=== PATIENT | male | born 1995 | race Caucasian/White ===

== ENCOUNTER 2016-11-03 12:26 | Emergency (ER) | payer OTHER ==
[2016-11-03 13:28] VITALS: BP 132/78
--- NOTE | 2016-11-03 13:51 | UC ---
Upper Extremity HPI - HPI Summary HPI Summary: Last night pt did a somersalt/forward roll at work and landed on his left shoulder. Pt states he felt a crunch in the shoulder and there is a lump where the collarbone and shoulder meet. Pt states he also can not move his arm forward. He hasnt taken anything for pain. pain is 6/10 when sitting at rest. hard tp put his hand behind his head. He rolled fwd onto his left shoulder and while most of his body weight was on his left shoulder, he heard a crunch with instant pain. never injured the shoulder/clavicle before. denies any numbing or tingling into arm. weakness due to pain. - History of Current Complaint Chief Complaint: UCUpperExtremity Stated Complaint: LEFT SHOULDER PAIN Time Seen by Provider: 11/03/16 13:50 - Allergies/Home Medications Allergies/Adverse Reactions: Allergies Allergy/AdvReac Type Severity Reaction Status Date / Time cats, guinea pigs Allergy Congestion Uncoded 08/29/16 07:12 dust mites Allergy Difficulty Uncoded 08/29/16 07:12 Breathing/Wheezing Home Medications: Home Medications NK [No Home Medications Reported] 11/03/16 [History Confirmed 11/03/16] PMH/Surg Hx/FS Hx/Imm Hx Previously Healthy: Yes Endocrine History Of: Denies: Diabetes, Thyroid Disease Cardiovascular History Of: Denies: Cardiac Disorders, Hypertension Respiratory History Of: Reports: Asthma Denies: COPD GI/ History Of: Denies: Ulcer - Surgical History Surgical History: Yes Surgery Procedure, Year, and Place: t/a as child - Family History Known Family History: Positive: Hypertension, Respiratory Disease - Social History Alcohol Use: None Substance Use Type: None Smoking Status (MU): Heavy Every Day Tobacco Smoker Type: Cigarettes Amount Used/How Often: 1/2 pack daily Have You Smoked in the Last Year: Yes Household Exposure Type: Cigarettes - Immunization History Most Recent Influenza Vaccination: not this season Review of Systems Constitutional: Negative Skin: Negative Eyes: Negative ENT: Negative Respiratory: Negative Cardiovascular: Negative Gastrointestinal: Negative Genitourinary: Negative Motor: Negative Neurovascular: Negative Musculoskeletal: Decreased ROM Neurological: Negative Psychological: Negative All Other Systems Reviewed And Are Negative: Yes Physical Exam Triage Information Reviewed: Yes Appearance: Well-Appearing, No Pain Distress Vital Signs: Initial Vital Signs Temp 98.7 F 11/03/16 13:21 Pulse 64 11/03/16 13:21 Resp 16 11/03/16 13:21 BP 132/78 11/03/16 13:21 Pulse Ox 99 11/03/16 13:21 Eye Exam: Normal ENT Exam: Normal Neck exam: Normal Neck: Positive: Supple, Nontender, No Lymphadenopathy Respiratory Exam: Normal Respiratory: Positive: Lungs clear, Normal breath sounds, No respiratory distress Cardiovascular Exam: Normal Cardiovascular: Positive: RRR, No Murmur, Pulses Normal, Brisk Capillary Refill Abdominal Exam: Normal Abdomen Description: Positive: Nontender, Soft Musculoskeletal: Positive: ROM Intact - with abduction and internal rotation., ROM Limited @ - external rotation and flexion. strength intact otherwise. sensation intact. CR brisk. there is mild swelling at distal clavicle joint with tenderness Neurological Exam: Normal Skin Exam: Normal Upper Extremity Course/Dx - Course Course Of Treatment: xray left shoulder and clavicle - xrays negative for frxs. Sling given. ice and rest and nsaids. denies any h/o PUD, CKD, HTN. - Differential Dx/Diagnosis Differential Diagnosis/HQI/PQRI: Fracture (Closed), Strain, Sprain Provider Diagnoses: left shoulder strain Discharge - Discharge Plan Condition: Stable Disposition: HOME Patient Education Materials: Rotator Cuff Injury (ED) Referrals: Maren Caldwell MD [Primary Care Provider] - Denys Calabrese MD [Medical Doctor] - 1 Day Additional Instructions: Ice, rest. OTC ibuprofen 600mgs every 8 hrs as needed. Stop it with any stomach upset or signs of blood or dark tar like stool.
[2016-11-03] MEDS ORDERED: Ibuprofen TAB* 600 MG PO ONE (13:57)
--- NOTE | 2016-11-03 14:14 | RAD ---
INDICATION: Left shoulder injury. TECHNIQUE: 3 views of the left shoulder were obtained. FINDINGS: The bones are in normal alignment. No fracture is seen. Joint spaces appear maintained. IMPRESSION: NO EVIDENCE OF FRACTURE.
--- NOTE | 2016-11-03 14:15 | RAD ---
INDICATION: Left clavicle trauma. TECHNIQUE: 2 views of the left clavicle were obtained. FINDINGS: The bones are in normal alignment no fracture is seen. The acromioclavicular joint space appears maintained. IMPRESSION: NO EVIDENCE FOR FRACTURE.
== END 2016-11-03 14:42 | disposition home or self-care (01) ==
LOC: UCCORT 12:26
DX: S46.912A Strain of unspecified muscle, fascia and tendon at shoulder and upper arm level, left arm, initial encounter (principal); X58.XXXA Exposure to other specified factors, initial encounter; Y92.9 Unspecified place or not applicable; J45.909 Unspecified asthma, uncomplicated; F17.210 Nicotine dependence, cigarettes, uncomplicated
CPT/HCPCS: 99213; A9270-GY; G0463

== ENCOUNTER 2017-03-30 13:25 | Emergency (ER) | payer OTHER ==
[2017-03-30 13:50] VITALS: BP 130/58
--- NOTE | 2017-03-30 14:00 | UC ---
Respiratory Complaint HPI - HPI Summary HPI Summary: cough x 4 days + chest congestion , wheezing, sob + fever, chills, no chest pain - History of Current Complaint Chief Complaint: UCRespiratory Stated Complaint: COUGH/SCRATCHY THROAT/POSS BRONCHITIS Time Seen by Provider: 03/30/17 13:46 Hx Obtained From: Patient Onset/Duration: Gradual Onset, Lasting Days - 4, Still Present Timing: Constant Severity Initially: Moderate Severity Currently: Moderate Character: Cough: Nonproductive Aggravating Factors: Exertion, Deep Breaths Associated Signs And Symptoms: Positive: Fever, Chills, Wheezing, URI - Allergies/Home Medications Allergies/Adverse Reactions: Allergies Allergy/AdvReac Type Severity Reaction Status Date / Time cats, guinea pigs Allergy Congestion Uncoded 03/30/17 13:43 dust mites Allergy Difficulty Uncoded 03/30/17 13:43 Breathing/Wheezing Home Medications: Home Medications Albuterol HFA INHALER* [Ventolin HFA Inhaler*] 1 - 2 puff INH Q4H PRN 03/30/17 [ History Confirmed 03/30/17] Guaifenesin [Mucinex Maximum Strength] 1,200 mg PO DAILY 03/30/17 [History Confirmed 03/30/17] Loratadine & Pseudoephedrine [Claritin-D 24 Hour 10-240 mg] 1 tab PO DAILY PRN 03/30/17 [History Confirmed 03/30/17] Multivitamins/Minerals TAB* [Thera M Plus TAB*] 1 tab PO DAILY 03/30/17 [ History Confirmed 03/30/17] [place]-3 Fatty Acids [Fish Oil] 1,000 mg PO DAILY 03/30/17 [History Confirmed 11/15] PMH/Surg Hx/FS Hx/Imm Hx Respiratory History: Asthma - Surgical History Surgical History: Yes Surgery Procedure, Year, and Place: t/a as child - Family History Known Family History: Positive: None, Hypertension, Respiratory Disease - Social History Alcohol Use: None Substance Use Type: None Smoking Status (MU): Light Every Day Tobacco Smoker Type: Cigarettes Amount Used/How Often: less than 1/2 pack daily Have You Smoked in the Last Year: Yes Household Exposure Type: Cigarettes - Immunization History Most Recent Influenza Vaccination: not this season Review of Systems Constitutional: Negative Skin: Negative Eyes: Negative ENT: Negative Respiratory: Shortness Of Breath, Cough All Other Systems Reviewed And Are Negative: Yes Physical Exam Triage Information Reviewed: Yes Appearance: Well-Appearing, No Pain Distress, Well-Nourished Vital Signs: Initial Vital Signs Temp 98.4 F 03/30/17 13:45 Pulse 75 03/30/17 13:45 Resp 20 03/30/17 13:45 BP 130/58 03/30/17 13:45 Pulse Ox 98 03/30/17 13:45 Vital Signs Reviewed: Yes Eyes: Positive: Conjunctiva Clear ENT: Positive: Normal ENT inspection, Hearing grossly normal, Pharynx normal Neck: Positive: Supple, Nontender, No Lymphadenopathy Respiratory: Positive: Chest non-tender, Wheezing Cardiovascular: Positive: RRR, No Murmur, Pulses Normal Abdominal Exam: Normal Skin Exam: Normal UC Diagnostic Evaluation - Laboratory O2 Sat by Pulse Oximetry: 98 Respiratory Course/Dx - Differential Dx/Diagnosis Provider Diagnoses: bronchitis Discharge - Discharge Plan Condition: Stable Disposition: HOME Prescriptions: predniSONE TAB* [Deltasone TAB*] 20 mg PO DAILY #10 tab Patient Education Materials: Acute Bronchitis (ED) Referrals: Maren Caldwell MD [Primary Care Provider] - 7 Days
== END 2017-03-30 14:08 | disposition home or self-care (01) ==
LOC: UCCORT 13:25
DX: J40 Bronchitis, not specified as acute or chronic (principal); F17.210 Nicotine dependence, cigarettes, uncomplicated
CPT/HCPCS: 99212; G0463

== ENCOUNTER 2017-06-12 07:30 | Emergency (ER) | payer OTHER ==
[2017-06-12 07:40] VITALS: BP 134/67
--- NOTE | 2017-06-12 08:13 | UC ---
Skin Complaint HPI - HPI Summary HPI Summary: 22 y/o male presents to the urgent care c/o of a boil in his RT buttocks increasing in size for the past 3 days. Today he feels he can't seat. Pain is 8/ 10 with seating and 4/10 standing. Pt had an abscess in the past. No HX of MRSA. Pt denies fever SOB, chest pain, N/V/D. No other complains - History of Current Complaint Chief Complaint: UCSkin Time Seen by Provider: 06/12/17 08:03 Stated Complaint: SKIN COMPLAINT Hx Obtained From: Patient Onset/Duration: Gradual Onset, Lasting Days, Still Present Skin Exposure Onset/Duration: Days Ago Timing: Constant Onset Severity: Mild Current Severity: Moderate Pain Intensity: 8 - sitting Pain Scale Used: 0-10 Numeric Location: Discrete - RT buttocks with painful boil Character: Swelling, Pain, Redness Aggravating: Touch Alleviating: Nothing Associated Signs & Symptoms: Positive: Tenderness. Negative: Nausea, Vomiting, Numbness, Fever, Abdominal Pain - Allergy/Home Medications Allergies/Adverse Reactions: Allergies Allergy/AdvReac Type Severity Reaction Status Date / Time cats, guinea pigs Allergy Congestion Uncoded 06/12/17 09:39 dust mites Allergy Difficulty Uncoded 06/12/17 09:39 Breathing/Wheezing Review of Systems Constitutional: Negative Skin: Rash - RT buttocks with painful boil Eyes: Negative ENT: Negative Respiratory: Negative Cardiovascular: Negative, Palpitations Genitourinary: Negative Motor: Negative Neurovascular: Negative Musculoskeletal: Negative Neurological: Negative Psychological: Negative All Other Systems Reviewed And Are Negative: Yes PMH/Surg Hx/FS Hx/Imm Hx Previously Healthy: Yes Respiratory History: Asthma - Surgical History Surgical History: Yes Surgery Procedure, Year, and Place: t/a as child - Family History Known Family History: Positive: None, Cardiac Disease, Hypertension, Respiratory Disease - Social History Occupation: Employed Full-time Lives: With Family Alcohol Use: None Substance Use Type: None Smoking Status (MU): Light Every Day Tobacco Smoker Type: Cigarettes Amount Used/How Often: less than 1/2 pack daily Have You Smoked in the Last Year: Yes Household Exposure Type: Cigarettes - Immunization History Most Recent Influenza Vaccination: not this season Physical Exam Triage Information Reviewed: Yes Appearance: Well-Appearing, No Pain Distress, Well-Nourished, Obese Vital Signs: Initial Vital Signs Temp 99.2 F 06/12/17 07:36 Pulse 84 06/12/17 07:36 Resp 16 06/12/17 07:36 BP 134/67 06/12/17 07:36 Pulse Ox 97 06/12/17 07:36 Vital Signs Reviewed: Yes Eye Exam: Normal Eyes: Positive: Conjunctiva Clear - PERRLA, EOMI, ENT Exam: Normal ENT: Positive: Normal ENT inspection, Hearing grossly normal, Pharynx normal, TMs normal Dental Exam: Normal Neck exam: Normal Neck: Positive: Supple, Nontender, No Lymphadenopathy Respiratory Exam: Normal Respiratory: Positive: Chest non-tender, Lungs clear, Normal breath sounds Cardiovascular Exam: Normal Cardiovascular: Positive: RRR, No Murmur, Pulses Normal Abdominal Exam: Normal Abdomen Description: Positive: Nontender, No Organomegaly, Soft. Negative: CVA Tenderness (R), CVA Tenderness (L) Bowel Sounds: Positive: Present Musculoskeletal Exam: Normal Musculoskeletal: Positive: Strength Intact, ROM Intact, No Edema Neurological Exam: Normal Psychological Exam: Normal Skin: Positive: significant lesion(s) - 44 y/o female presents to the [facility] c/o RT hip pain since Monday. She started walking on a daily basis to do some exercise for the past week. However Monday her pain became worse with bending and stretching. Pain is 6/10 at rest and 10/10 w/ bending. Pain radiates to her lower back and lateral side of RT leg. Pt denies numbness, tingling over the RT lower leg, bowel or urinary incontinence,SOB, chest pain, N /V/D, abdominal pain. Pt has taking motrin to alleviate symptoms. Course/Dx - Course Course Of Treatment: 22 y/o male presents to the urgent care c/o of a boil in his RT buttocks increasing in size for the past 3 days. Today he feels he can't seat. Pain is 8/10 with seating and 4/10 standing. Pt had an abscess in the past. No HX of MRSA. Pt denies fever SOB, chest pain, N/V/D. HX obtained. PE performed. Dr Tony consulted to see if I&D to be performed here at the clinic. Dr Tony Sugested Pt should go tothe ER for further images and treatment. Pt strongly advised to goimmediately to the ER. Pt agreed to go by provate Car. Pt left the clinic ambulating and hemodinamically stable. PE performed. - Differential Diagnoses - Skin Complaint Differential Diagnoses: Abscess, Allergic Reaction, Cellulitis, Lymphadenitis, MRSA - Diagnoses Provider Diagnoses: 1- Perianal abscess - Physician Notification/Consults Discussed Patient Care With: Heather Tony - Dr Tony agreed with Pt care and plan Discharge - Discharge Plan Condition: Stable Disposition: AGAINST MEDICAL ADVICE Discharge Disposition Comment: Highly recommeded Pt to go to the [facility] for Patient Education Materials: Anorectal Abscess and Anal Fistula (ED) Referrals: No Primary Care Phys,NOPCP [Primary Care Provider] - [facility] [Outside] Additional Instructions: Please go immediately to the [facility] immediately for further treatment, Risk of infection or sepsis may occur if you don't go there.
== END 2017-06-12 08:51 | disposition left against medical advice (07) ==
LOC: UCCORT 07:30
DX: L02.31 Cutaneous abscess of buttock (principal)
CPT/HCPCS: 99211; G0463

== ENCOUNTER → 2017-06-12 09:38 | Emergency (ER) | payer OTHER ==
[~2017-06-12 09:38] MED LIST: Ciprofloxacin 400MG IVPREMIX(* 400 MG/200 ML BAG IVPB ONE; Famotidine IV* 10 MG/ML 2 ML (20 mg) ONE; Ibuprofen TAB* 600 MG ONE; Ibuprofen TAB* 600 MG PO ONE; Iohexol 300* (CONTRAST) 10 ML SDV IV ONE; Morphine INJ* 4 MG/ML 1 ML CARPUJECT IV ONE; Morphine INJ* 4 MG/ML 1 ML CARPUJECT ONE; metroNIDAZOLE IV 500 MG/100ML* 500 MG/100 ML BAG IVPB ONE
[2017-06-12 09:41] VITALS: BP 146/87
--- NOTE | 2017-06-12 10:28 | ED ---
Skin Complaint - HPI Summary HPI Summary: Patient presents to the ED from [facility] with CC of right sided erythematous tender slightly raised area to the right of the anus x 2 days. The area has been present and he states was originally a small nodule that was non-tender present for approx 1 year without growth. Last 2-3 days he states the area grew 4x in size and became exquisitely painful. He also c/o diarrhea but denies N/V. Denies fevers, sweats or chills. He has never had this before, has never been dx with fisula's or abscesses, negative hx of MRSA and is generally healthy Pain is 8/10, constant and not worse with BM. Afebrile on arrival to ED. VS WNL. - History of Current Complaint Chief Complaint: EDRashSkinAbscess Time Seen by Provider: 06/12/17 09:47 Stated Complaint: ABCESS COMMING FORM CC Hx Obtained From: Patient Onset/Duration: Started Days Ago Skin Exposure Onset/Duration: Worse Since: - 2-3 days ago Timing: Constant Onset Severity: Moderate Current Severity: Moderate Pain Intensity: 7 Pain Scale Used: 0-10 Numeric Skin Location: Discrete - right side of anal canal Character: Pain, Redness, Raised, Painful Aggravating Symptom(s): Touch Alleviating Symptom(s): Nothing Associated Signs & Symptoms: Tenderness - Allergy/Home Medications Allergies/Adverse Reactions: Allergies Allergy/AdvReac Type Severity Reaction Status Date / Time Oxycodone Allergy Hallucinati Verified 06/15/17 20:17 ons cats, guinea pigs Allergy Congestion Uncoded 06/15/17 20:17 dust mites Allergy Difficulty Uncoded 06/15/17 20:17 Breathing/Wheezing PMH/Surg Hx/FS Hx/Imm Hx Previously Healthy: Yes Endocrine/Hematology History: Denies: Hx Diabetes, Hx Thyroid Disease Cardiovascular History: Denies: Hx Hypertension Respiratory History: Reports: Hx Asthma Denies: Hx Chronic Obstructive Pulmonary Disease (COPD) GI History: Denies: Hx Ulcer - Surgical History Surgery Procedure, Year, and Place: t/a as child - Immunization History Hx Pertussis Vaccination: No Immunizations Up to Date: Unable to Obtain/Confirm Infectious Disease History: No Infectious Disease History: Denies: Traveled Outside the [place] in Last 30 Days - Family History Known Family History: Positive: None, Cardiac Disease, Hypertension, Respiratory Disease - Social History Occupation: Employed Full-time Lives: With Family Alcohol Use: Rare Hx Substance Use: No Substance Use Type: Reports: None Hx Tobacco Use: Yes Smoking Status (MU): Light Every Day Tobacco Smoker Type: Cigarettes Amount Used/How Often: less than 1/2 pack daily Have You Smoked in the Last Year: Yes Review of Systems Constitutional: Negative Eyes: Negative Cardiovascular: Negative Respiratory: Negative Positive: no symptoms reported, see HPI Positive: Other - raised red painful area measuring 4x4cm to the right side of anal canal Neurological: Negative All Other Systems Reviewed And Are Negative: Yes Physical Exam Triage Information Reviewed: Yes Vital Signs On Initial Exam: Initial Vitals Temp Pulse Resp BP Pulse Ox 97.8 F 88 16 146/87 98 06/12/17 09:40 06/12/17 09:40 06/12/17 09:40 06/12/17 09:40 06/12/17 09:40 Vital Signs Reviewed: Yes Appearance: Positive: No Pain Distress, Well-Nourished Skin: Positive: Skin Color Reflects Adequate Perfusion, Other - raised red painful area measuring 4x4cm to the right side of anal canal likely over subcutaneous Head/Face: Positive: Normal Head/Face Inspection Eyes: Positive: EOMI, DANIELLE, Conjunctiva Clear Neck: Positive: Supple, No Lymphadenopathy Respiratory/Lung Sounds: Positive: Clear to Auscultation, Breath Sounds Present Cardiovascular: Positive: Normal, RRR, Pulses are Symmetrical in both Upper and Lower Extremities Abdomen Description: Positive: Nontender, No Organomegaly, Soft Musculoskeletal: Positive: Normal, Strength/ROM Intact Neurological: Positive: Sensory/Motor Intact, Alert, Oriented to Person Place, Time, Speech Normal Psychiatric: Positive: Normal AVPU Assessment: Alert Diagnostics - Vital Signs Vital Signs Temp Pulse Resp BP Pulse Ox 06/12/17 09:40 97.8 F 88 16 146/87 98 - Laboratory Result Diagrams: 06/12/17 10:12 06/12/17 10:12 Lab Statement: Any lab studies that have been ordered have been reviewed, and results considered in the medical decision making process. Course/Dx - Course Course Of Treatment: Patient presents with 2 days of worsening raised red painful area measuring 4x4cm to the right side of anal canal likely over subcutaneous external sphincter. CT Pelvis with contrast to show depth and possible tracking. Patient is given 600mg Ibuprofen with relief. Offered stronger pain medication, but patient refused. CT shows deep perrectal abscess that is not able to be drained in the ED. After speaking with my attending, we agreed to try Cipro and Flagyl and patient will follow up with surgery tomorrow. He was given Cipro and Flagyl IV prior to discharge. These medications given according to UTD and Infectious Disease Compendium. Patient is encouraged to take ibuprofen for any pain relief and return immedietly to the ED if symptoms worsen. - Differential Diagnoses - Skin Complaint Differential Diagnoses: Other - perianal abscess, anorectal abscess, pilonidal cyst, perirectal abscess, hidradenitits suppurativa, buttock skin abscess, anal fistula - Diagnoses Provider Diagnoses: Perirectal abscess Discharge - Discharge Plan Condition: Stable Disposition: HOME Prescriptions: Ciprofloxacin TAB* [Cipro 500 MG TAB*] 500 mg PO BID #20 tab metroNIDAZOLE TAB* [Flagyl 250 mg TAB*] 250 mg PO TID #30 tab Patient Education Materials: Anorectal Abscess and Anal Fistula (ED) Referrals: Ovidio Adkins MD [Medical Doctor] - No Primary Care Phys,NOPCP [Primary Care Provider] - Additional Instructions: Follow up with surgery in a few days Call tomorrow for appt As discussed, this area may need to be surgically drained if it does not reduce in size There is not a collection of enough fluid to allow for drainage at this time. If you develop fevers, sweats or chills or any worsening pain not controlled with ibuprofen, return to the ED immediately Warm compresses to the area will help heal the area Images - Images Perineum Male: 1 - raised red painful area measuring 4x4cm to the right side of anal canal likely over subcutaneous external sphincter
[2017-06-12 10:30] LABS: Hematocrit 44 % (42-52); Hemoglobin 14.9 g/dl (14.0-18.0); Mean Corpuscular HGB Conc 34 g/dl (31-36); Mean Corpuscular Hemoglobin 30 pg (27-31); Mean Corpuscular Volume 88 fL (80-94); Mean Platelet Volume 8 um3 (7.4-10.4); Red Blood Count 4.96 10^6/ul (4.0-5.4); Red Cell Distribution Width 13 % (10.5-15); White Blood Count 10.6 10^3/ul (3.5-10.8)
[2017-06-12 10:49] LABS: Albumin 4.5 g/dL (3.2-5.2); BUN/Creatinine Ratio 18.6 (8-20); Calcium 9.3 mg/dL (8.6-10.3); EGFR African American 140.5 (>60); EGFR Non-African American 109.3 (>60); Globulin 2.8 g/dL (2-4); Potassium 3.9 mmol/L (3.5-5.0); Total Bilirubin 0.8 mg/dL (0.2-1.0); Total Protein 7.3 g/dL (6.4-8.9)
--- NOTE | 2017-06-12 13:26 | RAD ---
Indication: Perirectal abscess. Contrast: Administered 149.2 ml of OMNIPAQUE 300 mg/ml CT of the pelvis was obtained in the axial plane. Sagittal and coronal reconstructed images were obtained. There is induration and a small fluid collection just to the right of the midline of the right buttocks measuring 4 cm in length x 2.8 cm AP x 1.8 cm in width. This extends to the right perianal region and a connection to the right perianal region is not excluded. The rectum itself is intact. No presacral fluid collections are noted. No dilated loops of bowel are noted. The appendix is visualized and is unremarkable. IMPRESSION: There is a small collection just to the right of midline involving the right buttocks region. This appears to extend to the right perianal region. A small fistula with abscess is not excluded.
== END | disposition home or self-care (01) ==
LOC: ED 09:38
DX: K61.1 Rectal abscess (principal)
CPT/HCPCS: 36415; 72193; 80053; 85025; 96374; 96376; 99282; A9270-GY; J0744; J2270; Q9967

== ENCOUNTER 2017-06-14 06:33 | Day surgery (SDC) | payer OTHER ==
[2017-06-14] MEDS ORDERED: traMADol TAB* 50 MG PO ONE (07:43)
[2017-06-14] MEDS ORDERED: Ibuprofen TAB* 400 MG PO ONE (07:43)
[2017-06-14] MEDS ORDERED: Morphine INJ* 4 MG/ML 1 ML SYRINGE IM ONE (08:33)
[2017-06-14] MEDS ORDERED: Morphine INJ* 4 MG/ML 1 ML SYRINGE IV ONE (08:59)
[2017-06-14] MEDS ORDERED: Ondansetron INJ* 2 MG/ML VIAL IV ONE (08:59)
[2017-06-14 09:26] LABS: Hematocrit 42 % (42-52); Hemoglobin 14.6 g/dl (14.0-18.0); Mean Corpuscular HGB Conc 35 g/dl (31-36); Mean Corpuscular Hemoglobin 30 pg (27-31); Mean Corpuscular Volume 87 fL (80-94); Mean Platelet Volume 8 um3 (7.4-10.4); Red Blood Count 4.81 10^6/ul (4.0-5.4); Red Cell Distribution Width 13 % (10.5-15); White Blood Count 9.3 10^3/ul (3.5-10.8)
[2017-06-14 09:40] LABS: BUN/Creatinine Ratio 19.4 (8-20); Calcium 9.5 mg/dL (8.6-10.3); EGFR African American 128.4 (>60); EGFR Non-African American 99.8 (>60); Potassium 3.8 mmol/L (3.5-5.0)
[2017-06-14] MEDS ORDERED: Famotidine IV* 10 MG/ML 2 ML (20 mg) IV ONE (12:49)
[2017-06-14] MEDS ORDERED: Buffered Lidocaine 0.9% SYRIN* 5 ML/SYR SYRINGE INTRADERM ONE (12:52)
--- NOTE | 2017-06-14 13:07 | HP ---
DATE OF ADMISSION: 06/14/2017. Patient was seen initially in the ED. ATTENDING SURGEON: Dr. Ovidio Adkins* (CARI Craig dictating). CHIEF COMPLAINT: Right buttock abscess. HISTORY OF PRESENT ILLNESS: This is a 22-year-old, generally healthy male who presented to the ED on 06/12/2017. He had had a small lump in the right buttock area for about a year, which was asymptomatic. Beginning about four to five days ago, he noted increased swelling, tenderness and pain in that area. [facility] and referred to the ED. Lab work at that time was essentially normal. CT of the pelvis did show a small collection measuring 4 x 2.8 x 1.8 cm in the right buttock and extending toward the right perianal area. The patient was discharged on oral Cipro and Flagyl with recommendation to follow- up with the surgery office. He was unable to do that yesterday because he needed to move. Late last evening and after moving his bowels, he noticed a significant increase in pain (10/10) with increased tenderness to palpation in the area. He reports a few spots of blood on the toilet paper after wiping from the bowel movement. He denies fever or chills. He has not had any similar episodes in the past. PAST MEDICAL HISTORY: He is generally healthy, though obese. He denies any chronic medical problems, including heart disease, hypertension, asthma, digestive problems, or problems with his liver or kidneys. PAST SURGICAL HISTORY: His only previous surgery is a tonsillectomy. He did undergo GI work-up, including upper and lower endoscopies when he was a teenager for GI bleeding. The work-up was negative and he has had no interval problems. CURRENT MEDICATIONS: 1. Cipro 500 mg b.i.d. 2. Flagyl 250 mg t.i.d. DRUG ALLERGIES: None known. FAMILY HISTORY: Negative for anesthesia problems, bleeding or clotting disorders. SOCIAL HISTORY: The patient currently lives with his girlfriend's parents. He is between jobs. He is a smoker of one-half pack per day and we discussed the benefits of smoking cessation. He denies the use of alcohol or recreational drugs. REVIEW OF SYSTEMS: General: No recent constitutional symptoms or acute illnesses, other than described in the HPI. Cardiovascular: No chest pain, palpitations, history of heart murmur. Respiratory: No history of asthma, chronic cough or shortness of breath. GI: No upper GI symptoms. Otherwise per HPI. : No problems reported. Endocrine: No diabetes or thyroid dysfunction. PHYSICAL EXAMINATION GENERAL: Well-nourished, obese male in no acute distress. He is somewhat sedated from recent pain medication. SKIN: Warm and dry. No rashes or lesions. See also below for rectum. VITAL SIGNS: Height 5'10", weight 260 pounds, BMI 37. Temperature 100, blood pressure 124/70, pulse 77, respirations 18. HEENT: Pupils equal and round, reactive. EOM's intact. No conjunctival pallor. Oropharynx: Mucus membranes slightly dry. No intraoral lesions. NECK: No lymphadenopathy, thyromegaly, or masses. LUNGS: Clear to auscultation, no wheezes. HEART: Regular rate and rhythm. No murmur noted. ABDOMEN: Obese, soft, nontender to palpation. No palpable masses or organomegaly. EXTREMITIES: No edema. GENITALIA: Not examined. RECTAL: There is swelling with induration and central fluctuance in the lower right buttock which is moderately severe in terms of tenderness. There is no exudate present. There is no tenderness in the remainder of the buttock or on the left side. Digital rectal exam reveals good sphincter tone and some tenderness only related to adjacent pressure to the right buttock, but otherwise benign exam. NEUROLOGIC: Grossly intact. LABORATORY DATA: Of note, white blood count 9300, hemoglobin 14.3. His P3 is normal. As noted, CT from 06/12/2017 did show a collection in the right buttock as noted above. IMPRESSION: Right buttock abscess. PLAN: I discussed options with the patient, both of which included incision and drainage, one without IV sedation and the other with IV sedation. He has chosen the latter, so he will be taken to the operating room later for incision and drainage of right buttock abscess after confirmation of exam and plan by Dr. Adkins. CARI IRENE [id number]/[facility] #: [id number] DANIELLE
[2017-06-14] MEDS ORDERED: metroNIDAZOLE IV 500 MG/100ML* 500 MG/100 ML BAG IVPB ONE (18:06)
[2017-06-14] MEDS ORDERED: fentaNYL* 50 MCG/ML 2 ML VIAL (100 MCG VIAL) ONE (18:11)
[2017-06-14] MEDS ORDERED: Midazolam* 1 MG/ML 5 ML VIAL (5 MG) ONE (18:11)
[2017-06-14] MEDS ORDERED: Bupivacaine 0.5% W/EPI SDV* 30 ML VIAL ONE (18:33)
[2017-06-14] MEDS ORDERED: Lidocaine 1% INJ* 10 MG/ML 30 ML SDV ONE (18:33)
[2017-06-14] MEDS ORDERED: Propofol* 10 MG/ML 20 ML BTL IV PUSH ONE (18:40)
[2017-06-14] MEDS ORDERED: HYDROcodone/ACETAMIN 5-325 MG* 1 TAB PO PRN (18:58)
[2017-06-14] MEDS ORDERED: Ondansetron INJ* 2 MG/ML VIAL IV PRN (18:58)
[2017-06-14] MEDS ORDERED: ceFAZolin 2 GM PREMIX (*) 50 ML IVPB ONE (19:00)
[2017-06-14] MEDS ORDERED: HYDROmorphone* 1 MG/ML 1 ML SYR ONE (19:48)
[2017-06-14] MEDS ORDERED: HYDROcodone/ACETAMIN 5-325 MG* 1 TAB ONE (19:49)
[2017-06-14] MEDS: HYDROmorphone* 1 MG/ML 1 ML SYR IV PRN ×2 (19:51→20:04)
[2017-06-14 20:04] VITALS: BP 91/46
--- NOTE | 2017-06-15 13:46 | OP ---
CC: [facility] OPERATIVE REPORT: DATE OF OPERATION: 06/14/17 DATE OF : [birth year] SURGEON: Ovidio Adkins MD ADDICTIONS COUNSELOR: None. ANESTHESIA: Local MAC. PRE-OP DIAGNOSIS: Perirectal abscess. POST-OP DIAGNOSIS: Perianal abscess. OPERATIVE PROCEDURE: Incision and drainage of perianal abscess. BLOOD LOSS: Minimal. FLUIDS: Minimal crystalloid fluid given. SPECIMENS: Fluid for culture and sensitivity. Wound packed with 1/2-inch iodoform packing. The patient tolerated the procedure well. DESCRIPTION OF PROCEDURE: Mr. Loo is a 22-year-old gentleman with a new onset of swelling and re dness at the perianal area seen by Teddy Choi in the emergency room. This was his second visit to [facility] emergency room in 3 days. He was diagnosed with perirectal abscess. He had been started on Cipr o and Flagyl. We discussed the recommendation of incision and drainage, outlining the details of th e procedure and the expected postprocedure course. The patient agreed and signed consent. He was t aken to the operating room and placed on the operating room table in supine position. General sedat ion was given, he was placed in the lithotomy position, exposing the right buttock area which was th en prepped and draped in standard surgical fashion. A timeout was performed. Digital rectal exam was performed and no evidence of abscess in this site was noted. The abscess ap peared to be consistent with just a perianal buttock abscess and we injected Marcaine for a local bl ock. A cruciate incision was made, copious pus was drained. Loculations were broken up with the doherty rgeon's finger. Irrigation was carried out and the wound was packed with 1/2-inch iodoform packing followed by a dressing. Cultures were taken, the patient tolerated the procedure well, was woken up in the OR, and transferred to the PACU in stable condition. [id number]/[facility] #: [id number]
== END 2017-06-14 20:20 | disposition home or self-care (01) ==
LOC: ED 06:33 → OR 13:25
PROVIDERS: ATTEND Surgery
DX: K61.2 Anorectal abscess (principal); J45.909 Unspecified asthma, uncomplicated; F17.210 Nicotine dependence, cigarettes, uncomplicated
CPT/HCPCS: 36415; 80048; 83605; 85027; 87040; 87070; 87073; 87076; 87077; 87186; 87205; 87640; 87641; A9270-GY; J0690; J1170; J2001; J2250; J2270; J2405; J2704; J3010

== ENCOUNTER 2017-06-15 20:03 | Emergency (ER) | payer OTHER ==
[2017-06-15 20:16] VITALS: BP 136/80
--- NOTE | 2017-06-15 20:16 | UC ---
Skin Complaint HPI - HPI Summary HPI Summary: 22 YEAR OLD MALE PRESENTS FOR DRESSING CHANGE OF RIGHT GLUTEAL ABSCESS POST I/D AT ANOTHER FACILITY. - History of Current Complaint Chief Complaint: UCSkin Time Seen by Provider: 06/15/17 20:15 Stated Complaint: S/P SURGERY/ DRESSING NEEDS ATTENTIN - Allergy/Home Medications Allergies/Adverse Reactions: Allergies Allergy/AdvReac Type Severity Reaction Status Date / Time Oxycodone Allergy Hallucinati Verified 06/15/17 20:17 ons cats, guinea pigs Allergy Congestion Uncoded 06/15/17 20:17 dust mites Allergy Difficulty Uncoded 06/15/17 20:17 Breathing/Wheezing Review of Systems Constitutional: Negative Skin: Other - RIGHT GLUTEAL ABSCESS POST I/D Eyes: Negative ENT: Negative Respiratory: Negative Cardiovascular: Negative Gastrointestinal: Negative Genitourinary: Negative Motor: Negative Neurovascular: Negative Musculoskeletal: Negative Neurological: Negative Psychological: Negative All Other Systems Reviewed And Are Negative: Yes PMH/Surg Hx/FS Hx/Imm Hx Previously Healthy: Yes - Surgical History Surgical History: Yes Surgery Procedure, Year, and Place: t/a as child. SX INTERVENTION FOR ABSCESS - Family History Known Family History: Positive: None, Cardiac Disease, Hypertension, Respiratory Disease - Social History Alcohol Use: Rare Substance Use Type: None, Prescribed Substance Use Comment - Amount & Last Used: POST SX RX Smoking Status (MU): Light Every Day Tobacco Smoker Type: Cigarettes Amount Used/How Often: 1/2 PPD Length of Time of Smoking/Using Tobacco: 8 YRS Have You Smoked in the Last Year: Yes Household Exposure Type: Cigarettes - Immunization History Most Recent Influenza Vaccination: not this season Physical Exam Triage Information Reviewed: Yes Vital Signs: Initial Vital Signs Temp 37.0 C 06/15/17 20:07 Pulse 70 06/15/17 20:07 Resp 16 06/15/17 20:07 BP 136/80 06/15/17 20:07 Pulse Ox 98 06/15/17 20:07 Vital Signs Reviewed: Yes Eye Exam: Normal ENT Exam: Normal Dental Exam: Normal Neck exam: Normal Neck: Positive: 1 Respiratory Exam: Normal Cardiovascular Exam: Normal Abdominal Exam: Normal Musculoskeletal Exam: Normal Neurological Exam: Normal Psychological Exam: Normal Skin: Positive: Other - RIGHT GLUTEAL ABSCESS POST I/D Course/Dx - Differential Diagnoses - Skin Complaint Differential Diagnoses: Abscess - Diagnoses Provider Diagnoses: RIGHT GLUTEAL ABSCESS POST I/D Discharge - Discharge Plan Condition: Stable Disposition: HOME Patient Education Materials: Wound Infection (ED) Referrals: No Primary Care Phys,NOPCP [Primary Care Provider] -
== END 2017-06-15 20:58 | disposition home or self-care (01) ==
LOC: UCCORT 20:03
DX: L02.31 Cutaneous abscess of buttock (principal); F17.210 Nicotine dependence, cigarettes, uncomplicated
CPT/HCPCS: 99211; G0463

== ENCOUNTER 2017-09-15 09:26 | Emergency (ER) | payer OTHER ==
--- NOTE | 2017-09-15 10:08 | UC ---
Throat Pain/Nasal Lavell HPI - HPI Summary HPI Summary: 22 year old male presents with complains of cough, sinus congestion, and body aches. - History of Current Complaint Chief Complaint: UCRespiratory Stated Complaint: NAUSEA,COLD SYMPTOMS Time Seen by Provider: 09/15/17 10:01 Hx Obtained From: Patient Onset/Duration: Sudden Onset Severity: Moderate Pain Scale Used: 0-10 Numeric - 5 - Allergies/Home Medications Allergies/Adverse Reactions: Allergies Allergy/AdvReac Type Severity Reaction Status Date / Time Oxycodone Allergy Hallucinati Verified 09/15/17 10:01 ons cats, guinea pigs Allergy Congestion Uncoded 09/15/17 10:01 dust mites Allergy Difficulty Uncoded 09/15/17 10:01 Breathing/Wheezing Home Medications: Home Medications Ibuprofen TAB* [Advil TAB*] 1,000 mg PO ONCE 09/15/17 [History Confirmed ] PMH/Surg Hx/FS Hx/Imm Hx Previously Healthy: Yes - Surgical History Surgical History: Yes Surgery Procedure, Year, and Place: [place] [facility] [place] [facility] [place] - Family History Known Family History: Positive: None, Cardiac Disease, Hypertension, Respiratory Disease - Social History Alcohol Use: Rare Substance Use Type: None Substance Use Comment - Amount & Last Used: POST SX RX Smoking Status (MU): Light Every Day Tobacco Smoker Type: Cigarettes Amount Used/How Often: 1/4 PPD Length of Time of Smoking/Using Tobacco: Since Age 14 Have You Smoked in the Last Year: Yes Household Exposure Type: Cigarettes - Immunization History Most Recent Influenza Vaccination: Not the Season Review of Systems Constitutional: Fever Skin: Negative Eyes: Negative ENT: Sore Throat, Nasal Discharge, Sinus Congestion, Sinus Pain/Tenderness Respiratory: Negative Cardiovascular: Negative Gastrointestinal: Negative Genitourinary: Negative Motor: Negative Neurovascular: Negative Musculoskeletal: Negative Neurological: Negative Psychological: Negative All Other Systems Reviewed And Are Negative: Yes Physical Exam Triage Information Reviewed: Yes Vital Signs: Initial Vital Signs Temp 37.6 C 09/15/17 09:59 Pulse 96 09/15/17 09:59 Resp 18 09/15/17 09:59 BP 127/83 09/15/17 09:59 Pulse Ox 100 09/15/17 09:59 Vital Signs Reviewed: Yes Eye Exam: Normal ENT: Positive: Pharyngeal erythema, Nasal congestion, Nasal drainage, Sinus tenderness Dental Exam: Normal Neck exam: Normal Neck: Positive: 1 Respiratory Exam: Normal Cardiovascular Exam: Normal Abdominal Exam: Normal Musculoskeletal Exam: Normal Neurological Exam: Normal Psychological Exam: Normal Skin Exam: Normal Throat Pain/Nasal Course/Dx - Differential Dx/Diagnosis Provider Diagnoses: sinsusitis. cough. sore throat Discharge - Discharge Plan Condition: Stable Disposition: HOME Prescriptions: Amoxicillin/Clavulanate TAB* [Augmentin TAB 875*] 875 mg PO BID #20 tab LoraTADine TAB(NF) [Claritin 10 MG TAB(NF)] 10 mg PO DAILY #30 tab Magic M W2 Kalia/Maal/Nyst/Lido* 5 ml SWISH SPIT QID PRN #120 ml PRN Reason: Pain Methylprednisolone [Medrol Dosepak 4 MG*] 4 mg PO .SEE ALLEN INSTRUCTION #21 tab Patient Education Materials: Sinusitis (ED) Forms: *Work Release Referrals: No Primary Care Phys,NOPCP [Primary Care Provider] -
[2017-09-15 10:14] VITALS: BP 127/83
== END 2017-09-15 10:45 | disposition home or self-care (01) ==
LOC: UCCORT 09:26
DX: J32.9 Chronic sinusitis, unspecified (principal); R05 Cough; J02.9 Acute pharyngitis, unspecified
CPT/HCPCS: 87502; 99212; G0463

== ENCOUNTER 2018-05-17 15:27 | Emergency (ER) | payer OTHER ==
[2018-05-17 15:46] VITALS: BP 141/77
--- NOTE | 2018-05-17 15:49 | UC ---
General HPI - HPI Summary HPI Summary: 23 yo male presents with multiple complaints. 1) He tells me that this morning upon waking in bed, he experienced "sleep paralysis". He was awake in bed, but says that he could not move and then "fell asleep or passed out" minutes later. 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 He says that this has happened once in the past, but many years ago and didn't think much of it. 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 Began to feel dizzy and have a headache followed by a b/l light nose bleed that lasted < 15 minutes. During this process his right arm began to feel numb and "heavy". 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 Denies fever, chills, sore throat, SOB, chest pain, palpitations, abdominal pain , n/v/d/c, dysuria, vision changes, or weakness. - History of Current Complaint Chief Complaint: UCGeneralIllness Stated Complaint: DIZZINESS,NOSE BLEED,GARDUNO,RIGHT ARM NUMBNESS Time Seen by Provider: 05/17/18 15:48 Hx Obtained From: Patient Timing: Constant Onset Severity: Mild Current Severity: Mild Pain Intensity: 3 - Allergy/Home Medications Allergies/Adverse Reactions: Allergies Allergy/AdvReac Type Severity Reaction Status Date / Time MS Oxycodone [Oxycodone] Allergy Hallucinati Verified 09/15/17 10:01 ons cats, guinea pigs Allergy Congestion Uncoded 09/15/17 10:01 dust mites Allergy Difficulty Uncoded 09/15/17 10:01 Breathing/Wheezing PMH/Surg Hx/FS Hx/Imm Hx Respiratory History: Asthma - Surgical History Surgical History: Yes Surgery Procedure, Year, and Place[place] [facility] [place] [facility] [place] - Family History Known Family History: Positive: None, Cardiac Disease, Hypertension, Respiratory Disease - Social History Occupation: Student Lives: With Family Alcohol Use: Rare Substance Use Type: None Substance Use Comment - Amount & Last Used: POST SX RX Smoking Status (MU): Light Every Day Tobacco Smoker Type: Cigarettes Amount Used/How Often: 1/4 PPD Length of Time of Smoking/Using Tobacco: Since Age 14 Have You Smoked in the Last Year: Yes Household Exposure Type: Cigarettes - Immunization History Most Recent Influenza Vaccination: Not the 2016/2017 Season Review of Systems Constitutional: Negative Skin: Negative Eyes: Negative ENT: Negative Respiratory: Negative Cardiovascular: Negative Gastrointestinal: Negative Genitourinary: Negative Motor: Negative Neurovascular: Negative Musculoskeletal: Negative Neurological: Headache, Other - Dizziness Psychological: Negative All Other Systems Reviewed And Are Negative: Yes Physical Exam - Summary Physical Exam Summary: GENERAL: NAD. WDWN. No pain distress. SKIN: No open sores. Good cap refill. HEENT: Head: AT/NC Eyes: PERRLA. EOM intact. Conjunctiva clear without inflammation or discharge. Ears: Hearing grossly normal. TMs intact, no bulging, erythema, or edema. Nose: Nasal mucosa pink and moist. NTTP maxillary and frontal sinus. Throat: Posterior oropharynx without exudates, erythema, or tonsillar enlargement. Uvula midline. NECK: Supple. Nontender. No lymphadenopathy. CHEST: CTAB. No r/r/w. No accessory muscle use. Breathing comfortably and in no distress. CV: RRR. Without m/r/g. Pulses intact. Brisk cap refill. ABDOMEN: Soft. NTTP. No distention or guarding. No organomegaly. No CVA tenderness. Bowel sounds present MSK: FROM in B/L UEs and LEs with symmetric strength. NEURO: A&Ox3. 3 word recall, remote, recent memory, ability to follow 2-step directions, and attention intact. CN II XII grossly intact. [id number] are intact. Gait with normal base. Romberg: maintains balance, no pronator drift. Normal speech. No facial drooping. PSYCH: Age appropriate behavior. Triage Information Reviewed: Yes Vital Signs: Initial Vital Signs Temp 98.1 F 05/17/18 15:40 Pulse 65 05/17/18 15:40 Resp 16 05/17/18 15:40 BP 141/77 05/17/18 15:40 Pulse Ox 99 05/17/18 15:40 Vital Signs Reviewed: Yes Course/Dx - Course Course Of Treatment: POC Glucose 97. EKG NSR 63bpm No ST changes as read by Dr. Persaud. Given the patient's abrupt onset of neurologic symptoms, I believe he requires a more advanced evaluation - therefore I advised him to seek further evaluation and treatment in the ER. He was agreeable to this. He declined ambulance transfer. - Differential Dx - Multi-Symptom Provider Diagnoses: Dizziness. Headache. epistaxis Discharge - Sign-Out/Discharge Documenting (check all that apply): Patient Departure - Discharge Plan Condition: Stable Disposition: HOME-RECOMMEND TO ED Referrals: Chava Hoskins MD [Primary Care Provider] - Additional Instructions: Please go to the ER for further evaluation of your symptoms Per institutional requirements, I have reviewed the chart, however, I was not consulted specifically or made aware of this patient by the above midlevel provider. I did not personally evaluate, interact with , or disposition this patient. - Billing Disposition and Condition Condition: STABLE Disposition: Home-Recommend to ED
== END 2018-05-17 16:17 | disposition home health service (06) ==
LOC: UCCORT 15:27
DX: R42 Dizziness and giddiness (principal); R51 Headache; R04.0 Epistaxis; Z88.5 Allergy status to narcotic agent; F17.210 Nicotine dependence, cigarettes, uncomplicated
CPT/HCPCS: 93005; 99212; G0463

== ENCOUNTER 2018-08-11 16:23 | Emergency (ER) | payer OTHER ==
[2018-08-11 17:17] VITALS: BP 136/79
--- NOTE | 2018-08-11 17:35 | UC ---
Throat Pain/Nasal Lavell HPI - HPI Summary HPI Summary: 23-year-old male here with a chief complaint of runny nose sore throat cough chest congestion and wheezing. This been going on 3-4 days. He has an albuterol inhaler which does help somewhat wheezing. He is a smoker. Patient reports he get gets a bronchitis this time every year. Overall his symptoms are worsening. - History of Current Complaint Chief Complaint: UCGeneralIllness Stated Complaint: COUGH,CONGESTION Time Seen by Provider: 08/11/18 17:25 Pain Intensity: 0 - Allergies/Home Medications Allergies/Adverse Reactions: Allergies Allergy/AdvReac Type Severity Reaction Status Date / Time oxycodone Allergy Hallucinati Verified 08/11/18 17:20 ons cats, guinea pigs Allergy Congestion Uncoded 09/15/17 10:01 dust mites Allergy Difficulty Uncoded 09/15/17 10:01 Breathing/Wheezing Home Medications: Home Medications Mometasone Furoate [Nasonex] 2 puff INH DAILY 08/11/18 [History Confirmed ] PMH/Surg Hx/FS Hx/Imm Hx Respiratory History: Asthma - Surgical History Surgical History: Yes Surgery Procedure, Year, and Place[place] [facility] [place] [facility] [place] - Family History Known Family History: Positive: None, Cardiac Disease, Hypertension, Respiratory Disease - Social History Alcohol Use: Rare Substance Use Type: None Substance Use Comment - Amount & Last Used: POST SX RX Smoking Status (MU): Light Every Day Tobacco Smoker Type: Cigarettes Amount Used/How Often: 1/4 PPD Length of Time of Smoking/Using Tobacco: Since Age 14 Have You Smoked in the Last Year: Yes Household Exposure Type: Cigarettes - Immunization History Most Recent Influenza Vaccination: Not the 2016/2017 Season Review of Systems Constitutional: Negative Skin: Negative Eyes: Negative ENT: Sore Throat, Nasal Discharge, Sinus Congestion Respiratory: Shortness Of Breath, Cough Cardiovascular: Negative Gastrointestinal: Negative Motor: Negative Neurovascular: Negative Musculoskeletal: Negative Neurological: Negative Psychological: Negative Is Patient Immunocompromised?: No All Other Systems Reviewed And Are Negative: Yes Physical Exam Triage Information Reviewed: Yes Appearance: No Pain Distress, Well-Nourished, Ill-Appearing - MILD Vital Signs: Initial Vital Signs Temp 98.7 F 08/11/18 17:14 Pulse 87 08/11/18 17:14 Resp 20 08/11/18 17:14 BP 136/79 08/11/18 17:14 Pulse Ox 99 08/11/18 17:14 Vital Signs Reviewed: Yes Eye Exam: Normal Eyes: Positive: Conjunctiva Clear ENT: Positive: Pharyngeal erythema, Nasal congestion, Nasal drainage, TMs normal Neck exam: Normal Neck: Positive: Supple Respiratory: Positive: No respiratory distress, Wheezing Cardiovascular: Positive: RRR Musculoskeletal Exam: Normal Musculoskeletal: Positive: Strength Intact, ROM Intact Neurological Exam: Normal Neurological: Positive: Alert, Muscle Tone Normal Psychological Exam: Normal Psychological: Positive: Age Appropriate Behavior Skin Exam: Normal Throat Pain/Nasal Course/Dx - Course Course Of Treatment: DISCUSSED VIRAL VERSES BACTERIAL INFECTION AND THE ROLE OF ANTIBIOTICS. THE PATIENT WISHES TO BE ON ANTIBIOTICS AT THIS TIME. Patient also reports that prednisone helps quite a bit when the wheezing gets this bad. - Differential Dx/Diagnosis Provider Diagnoses: BRONCHITIS. ASTHMA Discharge - Sign-Out/Discharge Documenting (check all that apply): Patient Departure All imaging exams completed and their final reports reviewed: No Studies - Discharge Plan Condition: Stable Disposition: HOME Prescriptions: Azithromyxin ALLEN (NF) [Z-Allen (Zithromax) 250 mg tabs #6] 2 tab PO .TODAY, THEN 1 DAILY #6 tab predniSONE TAB* [Deltasone 20 MG TAB*] 40 mg PO DAILY #10 tab Patient Education Materials: Acute Bronchitis (ED), Asthma (ED) Referrals: Chava Hoskins MD [Primary Care Provider] - Additional Instructions: FOLLOW UP WITH YOUR DOCTOR IF NOT COMPLETELY IMPROVED. GET RECHECKED FOR ANY WORSENING OF YOUR CONDITION OR QUESTIONS OR CONCERNS. - Billing Disposition and Condition Condition: STABLE Disposition: Home
== END 2018-08-11 17:40 | disposition home or self-care (01) ==
LOC: UCCORT 16:23
DX: J45.909 Unspecified asthma, uncomplicated (principal); Z88.5 Allergy status to narcotic agent; F17.210 Nicotine dependence, cigarettes, uncomplicated
CPT/HCPCS: 99212; G0463